=== PATIENT | male | born 1985 | race Caucasian/White ===

== ENCOUNTER 2018-04-19 21:31 | Emergency (ER) | payer MEDICAID ==
[~2018-04-19] VITALS: Wt 79.0 kg
[2018-04-19] MEDS ORDERED: SODIUM CHLORIDE 0.9% 1L BAG IV* STA (22:45)
[2018-04-19] MEDS ORDERED: ACETAMINOPHEN 325 MG TAB PO STA (22:45)
[2018-04-19] MEDS ORDERED: KETOROLAC 30 MG INJ IV ONE (23:49)
--- NOTE | 2018-04-20 02:11 | ERD ---
ER Documentation Chief Complaint Chief Complaint FEVER, BODY ACHES, ST X'S 3 DAYS HPI Is a 33-year-old male with fever sore throat and body aches for 3 days. Is also had a runny nose and a mild cough which is nonproductive. Patient states that fever, but no chills. No other current complaints. No sick contacts. ROS All systems reviewed and are negative except as per history of present illness. Allergies Allergies: Coded Allergies: No Known Allergy (Unverified , 08/03/13) PMhx/Soc Medical and Surgical Hx: pt denies Medical Hx, pt denies Surgical Hx History of Surgery: No Anesthesia Reaction: No Hx Neurological Disorder: No Hx Respiratory Disorders: No Hx Cardiac Disorders: No Hx Psychiatric Problems: No Hx Miscellaneous Medical Probl: No Hx Alcohol Use: No Hx Substance Use: No Hx Tobacco Use: No Smoking Status: Never smoker Physical Exam Vitals Vital Signs Date Temp Pulse Resp B/P (MAP) Pulse Ox O2 O2 Flow FiO2 Time Delivery Rate 04/19/18 100.4 23:37 04/19/18 100.4 109 18 128/90 95 Room Air 22:31 (103) 04/19/18 101.2 120 18 136/92 95 21:33 (107) Physical Exam Const: No acute distress Head: Atraumatic Eyes: Normal Conjunctiva ENT: Normal External Ears, Nose and Mouth. Neck: Full range of motion. No meningismus. Resp: Clear to auscultation bilaterally Cardio: Regular rate and rhythm, no murmurs Abd: Soft, non tender, non distended. Normal bowel sounds Skin: No petechiae or rashes Back: No midline or flank tenderness Ext: No cyanosis, or edema Neur: Awake and alert Psych: Normal Mood and Affect Result Diagram: 04/19/18225804/19/182258 Results 24 hrs Laboratory Tests Test 04/19/18 22:59 04/19/18 23:12 White Blood Count 9.2 10^3/ul Red Blood Count 4.92 10^6/ul Hemoglobin 14.0 g/dl Hematocrit 41.9 % Mean Corpuscular Volume 85.2 fl Mean Corpuscular Hemoglobin 28.5 pg Mean Corpuscular Hemoglobin Concent 33.4 g/dl Red Cell Distribution Width 13.0 % Platelet Count 184 10^3/UL Mean Platelet Volume 11.8 fl Immature Granulocytes % 0.300 % Neutrophils % 81.1 % Lymphocytes % 9.1 % Monocytes % 8.8 % Eosinophils % 0.3 % Basophils % 0.4 % Nucleated Red Blood Cells % 0.0 /100WBC Immature Granulocytes # 0.030 10^3/ul Neutrophils # 7.4 10^3/ul Lymphocytes # 0.8 10^3/ul Monocytes # 0.8 10^3/ul Eosinophils # 0.0 10^3/ul Basophils # 0.0 10^3/ul Nucleated Red Blood Cells # 0.0 10^3/ul Prothrombin Time 12.3 Sec Prothrombin Time Ratio 1.0 INR International Normalized Ratio 0.90 Activated Partial Thromboplast Time 33.2 Sec Urine Color YELLOW Urine Clarity CLEAR Urine pH 6.0 Urine Specific [place] 1.023 Urine Ketones TRACE mg/dL Urine Nitrite NEGATIVE mg/dL Urine Bilirubin NEGATIVE mg/dL Urine Urobilinogen NEGATIVE mg/dL Urine Leukocyte Esterase NEGATIVE Mag/ul Urine Microscopic RBC 10 /HPF Urine Microscopic WBC 1 /HPF Urine Mucus FEW /HPF Urine Hemoglobin NEGATIVE mg/dL Urine Glucose NEGATIVE mg/dL Urine Total Protein 1+ mg/dl Sodium Level 139 mmol/L Potassium Level 4.1 mmol/L Chloride Level 99 mmol/L Carbon Dioxide Level 28 mmol/L Anion Gap 12 Blood Urea Nitrogen 9 mg/dl Creatinine 0.91 mg/dl Est Glomerular Filtrat Rate mL/min > 60 mL/min Glucose Level 108 mg/dl Calcium Level 9.1 mg/dl Troponin I < 0.012 ng/ml POC Venous Lactate 1.3 mmol/L Current Medications Medications Dose Sig/Bell Start Time Status Last (Trade) Ordered Route PRN Stop Time Admin Dose Reason Admin Sodium 2,370 ml BOLUS OVER 2 04/19/18 DC 04/19/18 Chloride HOURS STAT 22:45 04/19/18 23:37 (NS) IV* 22:46 650 mg ONCE STAT 04/19/18 DC 04/19/18 Acetaminophen PO 22:45 04/19/18 23:37 (Tylenol 22:46 Tab) Ketorolac 30 mg ONCE ONCE 04/19/18 DC 04/20/18 Tromethamine IV 23:49 04/19/18 00:10 (Toradol) 23:50 Procedures/MDM EKG: Rate/Rhythm: [Normal Sinus Rhythm] QRS, ST, T-waves: [No changes consistent w/ acute ischemia] Impression: [No evidence of ischemia or arrhythmia] Chest X-ray 1V Interpreted by me: Soft Tissue: No acute abnormalities Bones: No acute abnormalities Mediastinum/Cardiac Silhouette/Lungs: [No acute abnormalities] My medical decision makin-year-old male with viral-like illness. Influenza negative. Stable for outpatient management. Hydrated he will be discharged home Motrin and prednisone. Follow-up with PCP. Return for worsening symptoms. Departure Diagnosis: Primary Impression: Upper respiratory infection URI type: unspecified URI Qualified Codes: J06.9 - Acute upper respiratory infection, unspecified Condition: Stable KAMALJIT MCKNIGHT Apr 20, 2018 02:11
[2018-04-20] MEDS ORDERED: IBUP-1542 PO (02:15)
[2018-04-20] MEDS ORDERED: PRED20TA PO (02:15)
[2018-04-20 02:32] VITALS: BP 120/81; PULSE 89; RESP 18
== END 2018-04-20 02:36 | disposition home or self-care (01) ==
LOC: E/R 21:31
DX: J06.9 Acute upper respiratory infection, unspecified (principal)
CPT/HCPCS: 36415; 71045; 80048; 81001; 83605; 84484; 85025; 85610; 85730; 87040; 87086; 93005; 96374; J1885; J7030; Z7502; Z7610